=== PATIENT | female | born 2005 | race Caucasian/White ===

== ENCOUNTER 2024-04-19 21:28 | Emergency (ER) | payer OTHER ==
[~2024-04-19] VITALS: Ht 170.2 cm; Wt 68.0 kg
[2024-04-19 21:36] VITALS: O2SAT 99
[2024-04-19 22:31] LABS: BASOPHILS % 0.6 % (0.0-2.0); EOSINOPHILS % 6.7 % (0.0-5.0); HEMATOCRIT. 36.7 % (36.0-48.0); HEMOGLOBIN. 12.3 g/dL (12.0-16.0); MEAN CORPUSCULAR HEMOGLOBIN 30.7 pg (28.0-32.0); MEAN CORPUSCULAR HGB CONC 33.5 g/dL (31.0-37.0); MEAN CORPUSCULAR VOLUME 91.6 fL (81.0-99.0); MEAN PLATELET VOLUME 8.3 fl (7.4-10.4); MONOCYTES % 7.6 % (2.0-8.0); NEUTROPHILS % 45.1 % (40.0-76.0); PLATELET 152 x1000/uL (130-400); WHITE BLOOD COUNT 3.7 x1000/uL (4.5-11.0)
[2024-04-19 22:32] LABS: CHLORIDE 107 mEq/L (98-107); POTASSIUM 4.1 mEq/L (3.5-5.1); SODIUM 139 mEq/L (136-145)
[2024-04-19 22:33] LABS: CALCIUM 8.8 mg/dL (8.7-10.4); CARBON DIOXIDE 26 mEq/L (21-32)
[2024-04-19 22:37] LABS: HCG SCREEN NEGATIVE
[2024-04-19 22:38] LABS: CREATININE 0.8 mg/dL (0.6-1.0); GLUCOSE 92 mg/dL (70-105); UREA NITROGEN BLOOD 19 mg/dL (9-23)
[2024-04-19 22:40] LABS: ACETAMINOPHEN < 2 ug/mL (10-30)
[2024-04-19 22:46] LABS: ETHANOL BLOOD < 10 mg/dL (<10)
[2024-04-19 23:03] LABS: *AMPHETAMINES SCREEN URINE NEGATIVE (NEGATIVE); *BARBITURATES SCREEN URINE NEGATIVE (NEGATIVE); *BENZODIAZEPINES SCREEN URINE PRESUMPTIVE POSITIVE (NEGATIVE); *COCAINE SCREEN URINE PRESUMPTIVE POSITIVE (NEGATIVE); CANNABINOID URINE SCREEN NEGATIVE (NEGATIVE); ECSTASY MDMA SCREEN URINE CONF.TEST INDICATED (NEGATIVE); METHADONE URINE SCREEN NEGATIVE (NEGATIVE); OPIATES URINE SCREEN NEGATIVE (NEGATIVE); PHENCYCLIDINE URINE SCREEN NEGATIVE (NEGATIVE)
[2024-04-20 00:21] LABS: GLUCOSE URINE NEGATIVE (NEGATIVE); KETONES URINE NEGATIVE (NEGATIVE)
[2024-04-20 01:04] LABS: CLARITY URINE CLEAR (CLEAR); COLOR URINE YELLOW (YELLOW); LEUKOCYTE ESTERASE URINE NEGATIVE (NEGATIVE); NITRITE URINE NEGATIVE (NEGATIVE); OCCULT BLOOD URINE NEGATIVE (NEGATIVE); PROTEIN URINE NEGATIVE (NEGATIVE); UROBILINOGEN URINE 0.2 E.U./dL (0.2-1.0)
[2024-04-20] MEDS: SODIUM CHLORIDE 0.9% 100 ML IV ONE (02:00)
[2024-04-20] MEDS: SODIUM CHLORIDE 0.9% 1,000 ML IV ONE (12:56)
[2024-04-20] MEDS: DIPHENHYDRAMINE 25MG CAPSULE PO ONE ×2 (22:11)
[2024-04-22] MEDS: FLUOXETINE HCL 10 MG CAPSULE PO SCH (10:32)
[2024-04-22] MEDS: ARIPIPRAZOLE 5MG TABLET PO SCH (10:32)
[2024-04-22] MEDS: NICOTINE 21MG PATCH TD ONE (16:24)
[2024-04-22] MEDS: MELATONIN 3MG TABLET PO SCH (23:15)
[2024-04-22] MEDS: DIPHENHYDRAMINE 50MG CAPSULE PO ONE (23:15)
[2024-04-23 09:51] VITALS: BP 102/56; PULSE 68; RESP 14; TEMP 36.94740; O2SAT 100
== END 2024-04-23 09:53 | disposition home or self-care (01) ==
LOC: ER 21:28
DX: T43.212A Poisoning by selective serotonin and norepinephrine reuptake inhibitors, intentional self-harm, initial encounter (principal); R45.851 Suicidal ideations; F10.20 Alcohol dependence, uncomplicated; F14.90 Cocaine use, unspecified, uncomplicated; Z20.822 Contact with and (suspected) exposure to COVID-19; X83.8XXA Intentional self-harm by other specified means, initial encounter; Y93.89 Activity, other specified; Y92.89 Other specified places as the place of occurrence of the external cause; Y99.8 Other external cause status; Y90.0 Blood alcohol level of less than 20 mg/100 ml
CPT/HCPCS: 80305; 80048; 81003; 80307; 80329; 80320; 84703; 85025; 36415; 99285; 87426; 96360; 96361; Q0163 ×2; J7050; J7030; G0480